=== PATIENT | female | born 1960 | race African-American/Black ===

== ENCOUNTER 2019-02-25 16:46 | Emergency (ER) | payer OTHER ==
[~2019-02-25] VITALS: Ht 170.2 cm; Wt 129.7 kg
[~2019-02-25 16:46] MED LIST: BACTRIM DS TAB1 EACH PO; NOHOMEMEDICATIONS; PHENERGAN 25 MG25 M1 PO; VENTOLIN HFA 1818 GM INH
[2019-02-25 17:07] LABS: URINE BILIRUBIN NEGATIVE (Negative); URINE BLOOD 3+ (Negative); URINE CLARITY CLEAR; URINE COLOR YELLOW; URINE GLUCOSE-RANDOM* NEGATIVE (Negative); URINE KETONES NEGATIVE (Negative); URINE LEUKOCYTES NEGATIVE (Negative); URINE NITRITE NEGATIVE (Negative); URINE PROTEIN (DIPSTICK) NEGATIVE (Negative); URINE SPECIFIC GRAVITY 1.025 (1.005-1.035); URINE UROBILINOGEN 0.2 E.U./dl (0.2-1.0)
[2019-02-25 17:12] LABS: SQUAMOUS >10 Many /LPF (0-3)
[2019-02-25 17:13] LABS: CASTS None Seen /LPF (None Seen); URINE WBC 0-5 Rare /HPF (0-5)
[2019-02-25 17:14] LABS: BACTERIA None Seen /HPF (None Seen); CRYSTALS None Seen /LPF (None Seen); URINE RBC 3-10 Few /HPF (0-2)
[2019-02-25] MEDS ORDERED: IBUPROFEN 200200 M1 PO (17:59)
[2019-02-25] MEDS ORDERED: OMEPRAZOLE 20 M20 M1 PO (17:59)
[2019-02-25] MEDS ORDERED: ASPIR 8181 MG PO (17:59)
[2019-02-25 18:09] LABS: ABSOLUTE NEUTROPHILS 6.8 thou/uL (1.4-8.2); BASOPHILS 0.6 % (0.0-2.0); EOSINOPHILS 0.8 % (0.0-3.0); HEMATOCRIT 39.9 % (37.0-47.0); HEMOGLOBIN 13.1 gm/dL (12.0-15.0); LYMPHOCYTES 19.4 % (24.0-44.0); MCH 25.7 pg (26.0-34.0); MCV 77.9 fL (80.0-100.0); MONOCYTES 11.4 % (1.0-8.0); PLATELET COUNT 285 thou/uL (150-400); POLYS 67.8 % (36.0-66.0); RBC 5.11 mil/uL (4.20-5.00)
[2019-02-25 18:20] LABS: ANION GAP 7 mmol/L (7-16); BUN 10 mg/dL (7-18); CALCIUM 10.3 mg/dL (8.5-10.1); CHLORIDE 100 mmol/L (98-107); CO2 28 mmol/L (21-32); CREATININE 1.1 mg/dL (0.6-1.0); GLUCOSE 140 mg/dL (74-106); POTASSIUM 3.9 mmol/L (3.5-5.1); SODIUM 135 mmol/L (136-145)
[2019-02-25 18:31] LABS: ALBUMIN 3.4 g/dL (3.4-5.0); LIPASE 88 U/L (73-393); SGOT 17 U/L (15-37); SGPT 19 U/L (30-65); TOTAL BILIRUBIN 0.6 mg/dL (<0.1-1.0); TOTAL PROTEIN 8.2 g/dL (6.4-8.2); TROPONIN-I <0.06 ng/mL (<0.06)
[2019-02-25] MEDS ORDERED: FLAGYL500 M1 PO (19:55)
[2019-02-25] MEDS ORDERED: CIPRO500 MG PO (19:55)
[2019-02-25 20:32] VITALS: BP 132/73
--- NOTE | 2019-02-27 17:10 | EKG ---
[place] [address] [facility] [place] [address] ELECTROCARDIOGRAM REPORT Name: JOSE CHIN Room #: DEP Tracie#: [id number] Admission: 02/25/19 Attend Phys: Discharge: 02/25/19 Date of : 62 Report #: [id number] THIS REPORT FOR: //name// [facility] ED Test Date: 2019-02-25 Test Time: 17:14:33 Pat Name: JOSE CHIN Department: Room: Gender: F Sack Sorter: LEROY : 1960 Requested By: Rosmery Grande Order Number: [id number] MD: Juan Krishnan Measurements Intervals [place] Rate: 104 P: 67 AL: 141 QRS: -19 QRSD: 81 T: 27 QT: 307 QTc: 404 Interpretive Statements Sinus tachycardia Borderline left axis deviation Compared to ECG 08/12/2013 01:46:35 No significant changes Electronically Signed On 02-27-2019 17:10:14 CDT by Juan Krishnan [email or web address] <ELECTRONICALLY SIGNED> By: Juan Krishnan MD, [facility] 02/27/19 1710 171 1714 Juan Krishnan MD, FACC /EPI
== END 2019-02-25 20:34 | disposition home or self-care (01) ==
LOC: ER 16:46
PROVIDERS: Physician Assistant
DX: K57.32 Diverticulitis of large intestine without perforation or abscess without bleeding (principal); E11.9 Type 2 diabetes mellitus without complications; E66.9 Obesity, unspecified; Z68.41 Body mass index [BMI] 40.0-44.9, adult; Z90.49 Acquired absence of other specified parts of digestive tract; Z88.0 Allergy status to penicillin; Z88.2 Allergy status to sulfonamides

== ENCOUNTER 2019-02-28 05:10 | Emergency (ER) | payer OTHER ==
[~2019-02-28] VITALS: Ht 170.2 cm; Wt 129.7 kg
[~2019-02-28 05:10] MED LIST changes: +ASPIR 8181 MG PO; +CIPRO500 MG PO; +FLAGYL500 M1 PO; +IBUPROFEN 200200 M1 PO; +OMEPRAZOLE 20 M20 M1 PO
[2019-02-28 05:35] LABS: URINE BILIRUBIN NEGATIVE (Negative); URINE BLOOD 2+ (Negative); URINE CLARITY SL CLOUDY; URINE COLOR YELLOW; URINE GLUCOSE-RANDOM* NEGATIVE (Negative); URINE KETONES NEGATIVE (Negative); URINE LEUKOCYTES-REFLEX TRACE (Negative); URINE NITRITE-REFLEX NEGATIVE (Negative); URINE PROTEIN (DIPSTICK) 2+ (Negative); URINE SPECIFIC GRAVITY 1.025 (1.005-1.035); URINE UROBILINOGEN 0.2 E.U./dl (0.2-1.0)
[2019-02-28 06:06] LABS: ABSOLUTE NEUTROPHILS 2.7 thou/uL (1.4-8.2); EOSINOPHILS 5.4 % (0.0-3.0); HEMATOCRIT 38.6 % (37.0-47.0); HEMOGLOBIN 12.7 gm/dL (12.0-15.0); LYMPHOCYTES 42.3 % (24.0-44.0); MCH 25.8 pg (26.0-34.0); MCHC 32.9 g/dL (28.0-37.0); MCV 78.5 fL (80.0-100.0); MONOCYTES 10.7 % (1.0-8.0); PLATELET COUNT 298 thou/uL (150-400); POLYS 40.6 % (36.0-66.0); RBC 4.92 mil/uL (4.20-5.00); WBC 6.7 thou/uL (4.0-11.0)
[2019-02-28 06:17] LABS: ANION GAP 10 mmol/L (7-16); BUN 18 mg/dL (7-18); CALCIUM 8.9 mg/dL (8.5-10.1); CHLORIDE 103 mmol/L (98-107); CO2 24 mmol/L (21-32); CREATININE 1.1 mg/dL (0.6-1.0); GLUCOSE 187 mg/dL (74-106); POTASSIUM 3.8 mmol/L (3.5-5.1); SODIUM 137 mmol/L (136-145)
[2019-02-28 06:28] LABS: SQUAMOUS >10 Many /LPF (0-3)
[2019-02-28 06:29] LABS: BACTERIA-REFLEX 1-9 Few /HPF (None Seen); CASTS None Seen /LPF (None Seen); CRYSTALS None Seen /LPF (None Seen); URINE RBC 3-10 Few /HPF (0-2); URINE WBC-REFLEX 0-5 Rare /HPF (0-5)
[2019-02-28 06:30] LABS: ALBUMIN 3.1 g/dL (3.4-5.0); DIRECT BILIRUBIN < 0.1 mg/dL (<0.1-0.3); LIPASE 155 U/L (73-393); SGOT 18 U/L (15-37); SGPT 23 U/L (30-65); TOTAL BILIRUBIN 0.3 mg/dL (<0.1-1.0); TOTAL PROTEIN 7.7 g/dL (6.4-8.2)
[2019-02-28 07:17] VITALS: BP 133/88
--- NOTE | 2019-02-28 13:20 | EKG ---
[place] [address] [facility] [place] [address] ELECTROCARDIOGRAM REPORT Name: JOSE CHIN Room #: DEP Tracie#: [id number] Admission: 02/28/19 Attend Phys: Discharge: 02/28/19 Date of : 62 Report #: [id number] THIS REPORT FOR: //name// [facility] ED Test Date: 2019-02-28 Test Time: 05:31:35 Pat Name: JOSE CHIN Department: Room: Gender: F Senior Javascript Engineer: ALVINA : 1960 Requested By: Sonia Rea Order Number: [id number] MD: Juan Krishnan Measurements Intervals [place] Rate: 90 P: 67 ND: 159 QRS: 10 QRSD: 84 T: 21 QT: 348 QTc: 426 Interpretive Statements Sinus rhythm Normal tracing Compared to ECG 02/25/2019 17:14:33 Sinus tachycardia no longer present Electronically Signed On 02-28-2019 13:20:18 CDT by Juan Krishnan [email or web address] <ELECTRONICALLY SIGNED> By: Juan Krishnan MD, [facility] 02/28/19 1320 0531 0531 Juan Krishnan MD, FACC /EPI
== END 2019-02-28 07:33 | disposition home or self-care (01) ==
LOC: ER 05:10
PROVIDERS: Emergency Medicine
DX: R55 Syncope and collapse (principal); K57.32 Diverticulitis of large intestine without perforation or abscess without bleeding; E11.9 Type 2 diabetes mellitus without complications; E66.9 Obesity, unspecified; Z88.2 Allergy status to sulfonamides; Z88.0 Allergy status to penicillin; Z79.899 Other long term (current) drug therapy; Z79.82 Long term (current) use of aspirin; Z90.49 Acquired absence of other specified parts of digestive tract